=== PATIENT | female | born 1980 | race African-American/Black ===

== ENCOUNTER 2025-01-07 15:55 | Emergency (ER) | payer OTHER ==
[~2025-01-07] VITALS: Ht 154.9 cm; Wt 77.3 kg
[2025-01-07 16:01] VITALS: BP 189/92; PULSE 70; RESP 18; TEMP 98.1; O2SAT 100
[2025-01-07] MEDS ORDERED: ATOR10TA PO (16:07)
[2025-01-07] MEDS ORDERED: LISI-894 PO (16:07)
[2025-01-07] MEDS ORDERED: METF-1211 PO (16:07)
[2025-01-07] MEDS ORDERED: HYDR50TA36 PO (16:07)
[2025-01-07 16:59] LABS: COVID AG,FIA SOURCE NASAL SWAB
[2025-01-07 17:21] LABS: INFLUENZA TYPE A NEGATIVE FOR TYPE A (NEGATIVE); INFLUENZA TYPE B NEGATIVE FOR TYPE B (NEGATIVE); SARS-COV2 (COVID) ANTIGEN,FIA Negative (Negative)
[2025-01-07] MEDS ORDERED: ACET-3385 PO (18:16)
[2025-01-07] MEDS ORDERED: AZIT-164 PO (18:16)
[2025-01-07] MEDS ORDERED: BENZ-227 PO (18:16)
[2025-01-07] MEDS: ACETAMINOPHEN 500 MG TABLET PO ONE (18:41)
[2025-01-07] MEDS: BENZONATATE 100 MG CAPSULE PO ONE (18:41)
[2025-01-07] MEDS: AZITHROMYCIN 500 MG TABLET PO ONE (18:41)
== END 2025-01-07 18:56 | disposition home or self-care (01) ==
LOC: EMS 15:55
DX: J18.0 Bronchopneumonia, unspecified organism (principal); I10 Essential (primary) hypertension; Z79.899 Other long term (current) drug therapy; Z20.822 Contact with and (suspected) exposure to COVID-19
CPT/HCPCS: 99284; 87426; 82962; 87804; J0456